=== PATIENT | female | born 1985 | race Caucasian/White ===

== ENCOUNTER 2017-10-07 16:47 | Emergency (ER) | payer OTHER ==
[~2017-10-07] VITALS: Ht 165.1 cm; Wt 54.7 kg
[~2017-10-07 16:47] MED LIST: ABILIFY5 MG PO; ALDACTONE50 MG PO; ALPRAZOLAM0.25 MG PO; BCP; BENTYL20 MG PO; CATAPRES0.1 MG PO; CIPRO500 MG PO; CLINDAMYCIN HC300 MG PO; DOXYCYCLINE HY100 M3 PO; FIORICET,ESG1 TABLET PO; Lasix PO; METHADONE10 MG/1 M1 PO; MIRALAX17 GM PO; MOTRIN600 MG PO; MOTRIN800 MG PO; NAPROSYN500 MG PO; NOHOMEMEDS; PAXIL20 M1 PO; PREDNISONE20 MG PO; PROMETHAZINE HC25 M1 PO; SYNTHROID50 MCG PO; TRAZODONE HCL50 MG PO; ULTRAM50 MG PO; VALIUM5 MG PO; VICODIN,LORT1 TABLET PO; XANAX0.5 MG PO; XANAX1 MG PO; ZANTAC150 MG PO
[2017-10-07 17:43] LABS: HEMATOCRIT 37.9 % (36.0-46.0); HEMOGLOBIN 12.9 G/DL (11.9-15.5); MCV 88.1 FL (83-99); RBC DIS.WIDTH-CV 12.1 % (11.8-14.6); RBC DIS.WIDTH-SD 39.1 % (39-53); WHITE BLOOD COUNT 20.8 K/uL (4.1-10.2)
[2017-10-07 17:49] LABS: APPEARANCE CLEAR ((CLEAR)); BILIRUBIN NEGATIVE; BLOOD NEGATIVE; COLOR YELLOW ((YELLOW)); GLUCOSE (STRIP) NEGATIVE; KETONES 5; LEUKOCYTES NEGATIVE; NITRITE NEGATIVE; PROTEIN (STRIP) NEGATIVE; SPECIFIC GRAVITY 1.019 (1.000-1.030); UCUL ADDED? NO
[2017-10-07 17:52] LABS: ALBUMIN 4.5 g/dL (3.2-4.8); CHLORIDE 103 mEq/L (99-109); POTASSIUM 4.3 mEq/L (3.7-5.4); SODIUM 139 mEq/L (136-147)
[2017-10-07 17:54] LABS: GLUCOSE 116 mg/dL (70-99)
[2017-10-07 17:55] LABS: TOTAL PROTEIN 7.3 g/dL (6.4-8.3)
[2017-10-07 17:56] LABS: TOTAL BILIRUBIN 0.7 mg/dL (0.0-1.0)
[2017-10-07 17:58] LABS: ALKALINE PHOSPHATASE 61 IU/L (3-129); CREATININE 0.7 mg/dL (0.6-1.3); GFR ESTIMATE (CALCULATED) > 59 mL/min/
[2017-10-07 17:59] LABS: UREA NITROGEN (BUN) 9 mg/dL (9-23)
[2017-10-07 18:00] LABS: AST (GOT) 18 IU/L (2-34)
[2017-10-07 18:01] LABS: ALT (GPT) 13 IU/L (3-49)
[2017-10-07 18:10] LABS: QUANTITATIVE HCG < 4.0 MIU/ML
[2017-10-07 18:26] LABS: PLAT.SUFFICIENCY ADEQUATE; PLATELET COUNT 238 K/uL (156-360)
[2017-10-07] MEDS ORDERED: ZOFRAN4 MG PO (21:46)
[2017-10-07 22:10] VITALS: BP 137/92
== END 2017-10-07 22:11 | disposition home or self-care (01) ==
LOC: EME 16:47
DX: N83.202 Unspecified ovarian cyst, left side (principal); D72.829 Elevated white blood cell count, unspecified; R10.12 Left upper quadrant pain; Z98.51 Tubal ligation status; F32.9 Major depressive disorder, single episode, unspecified; F41.9 Anxiety disorder, unspecified; J45.909 Unspecified asthma, uncomplicated; E03.9 Hypothyroidism, unspecified; F17.200 Nicotine dependence, unspecified, uncomplicated; Z79.891 Long term (current) use of opiate analgesic
CPT/HCPCS: 71046; 74177; 80053; 81003; 84702; 85027; 99281; 99285; J0500; J2405; J7030